=== PATIENT | female | born 1985 | race Caucasian/White ===

== ENCOUNTER 2016-09-16 18:45 | Emergency (ER) | payer OTHER ==
[~2016-09-16] VITALS: Ht 172.7 cm; Wt 73.4 kg
[2016-09-16 18:52] VITALS: TEMP 36.8; Ht 172.7 cm; Wt 73.4 kg
[2016-09-16] MEDS ORDERED: SPIR50TA2 PO (19:28)
[2016-09-16] MEDS ORDERED: BCPILLS PO (19:28)
[2016-09-16] MEDS ORDERED: CETI10TA10 PO (19:28)
[2016-09-16] MEDS ORDERED: DOXY100C76 PO (19:28)
[2016-09-16] MEDS ORDERED: IBUPROFEN 600 MG TAB PO STA (20:04)
[2016-09-16] MEDS ORDERED: XYLOCAINE 1%/SOD BICARB 20 ML VIAL INFIL ONE (20:15)
[2016-09-16] MEDS ORDERED: AMOX875T PO (20:54)
[2016-09-16] MEDS ORDERED: AMOXICILLIN/CLAVULANATE TAB 875 MG TAB PO ONE (21:00)
[2016-09-16 21:17] VITALS: BP 115/83; PULSE 83; O2SAT 100
--- NOTE | 2016-09-17 03:17 | EMERGENCY ROOM VISIT NOTE ---
ED Visit Note First contact with patient: 19:54 Chief Complaint: My neighbor's dog bit my right forearm. History of Present Illness: Ms. Thomas is a 31-year-old white female who ambulates into the ED accompanied by a male friend complaining of a dog bite injury to the right forearm. Patient reports just prior to coming to the hospital she went outside her house and her neighbor's dog bit her right forearm without provocation. She control bleeding prior to arrival at the hospital but did not wash the wound. She is unsure of the dog's rabies immunization status. Associated with her dog bite she reports she has been having pain in the area. She describes this as a combination of sharp and throbbing. She rates her discomfort 6/10. The pain is nonradiating. The pain worsens with palpation. She has not identified any alleviating factors related to the pain. She has not taken any medications for pain prior to arrival at the hospital. Associated with her pain she reports she has been having paresthesias from the area of the dog bite distally throughout the right hand. She is right-hand dominant. She denies elbow pain, wrist pain, hand weakness. Review of Systems: As noted above in history of present illness. Past Medical History: Current Medications: Aldactone, Zyrtec, control, doxycycline. Allergies to Medications: Patient denies. Social History: Patient is currently employed; she feels safe in her home environment; she denies tobacco use. Tetanus Immunization Status: Patient reports up-to-date. Physical Examination: Vital Signs: Date Time Temp Pulse Resp B/P (MAP) Pulse Ox O2 Delivery O2 Flow Rate FiO2 09/16/16 21:17 83 16 115/83 100 09/16/16 18:52 36.8 71 18 118/79 98 Room Air GENERAL: 31-year-old female in mild to moderate distress due to pain, nontoxic- appearing, afebrile and hemodynamically stable. NEUROLOGICAL: Awake, alert and oriented to person, place and time. Answering questions appropriately and following commands. Normal gait. Good hand eye coordination. No focal motor or sensory deficits. SKIN: Warm, dry and pink. Right Forearm: Over the lateral aspect of the forearm approximately mid shaft patient has a 3.8 cm full-thickness laceration. While exploring the wound is noted that this animal bite is down to the level of the muscle but does not penetrate the muscle. RIGHT UPPER EXTREMITY: No gross bony deformity. No tenderness in the wrist or hand. Moderate tenderness over her dog bite. Full range of motion in flexion and extension of the elbow, pronation and supination of forearm, flexion, extension and radial ulnar deviation of the wrist and flexion and extension of all MCP, PIP and DIP joints. Throughout the hand the skin was warm and pink and capillary refill is brisk. She was able to distinguish light sensations but does report she has a tingling sensation in all the fingers. ED Course: Patient is assessed as noted above. Patient's medications were reviewed. Wound Repair: Complexity: Basic Verbal consent was obtained after the risks and benefits were explained. The skin was prepped with betadine and a sterile field set. Wound edges of the wound was anesthetized with 4.2 ml buffered 1% lidocaine. The wound was explored for foreign bodies and none found. Copious irrigation was performed using sterile saline. With direct pressure the bleeding subsided. Debridement was not performed. The wound edges were approximated using 5-0 Ethilon with 9 simple interrupted sutures. Hemostasis and excellent approximation was achieved. Antibacterial ointment and a sterile dressing applied. No complications and the patient tolerated the procedure well. Patient was given 600 mg of ibuprofen by mouth for pain and 875 mg of Augmentin for antibiotic coverage. Patient was educated about tonight's findings and instructed on her treatment plan; she verbalizes understanding and agreement with this plan. Clinical Impression: Dog bite to the right forearm. Disposition: Patient discharged home in stable condition; prior to departure he was reassessed and subjectively she was feeling better. Reported Plan: Comfort measures, wound care, and signs of infection were discussed with the patient. Patient was prescribed Augmentin 875 mg 2 times a day for 7 days. Patient was encouraged to contact the local police for further investigation of the incident and to find if the dog's immunization status for rabies is up-to- date. Patient was encouraged to follow-up with PCP or return to the ED for signs of infection and/or suture removal in 10-12 days. Patient was encouraged return the ED if she cannot find out or if the dog's rabies immunization are not up-to-date.
== END 2016-09-16 21:18 | disposition home or self-care (01) ==
LOC: C.EDB 18:46 → C.EDD 21:18
DX: S51.851A Open bite of right forearm, initial encounter (principal); W54.0XXA Bitten by dog, initial encounter; Z79.899 Other long term (current) drug therapy